=== PATIENT | female | born 1990 | race Caucasian/White ===

== ENCOUNTER 2016-09-20 08:36 | Inpatient (IN) | payer OTHER ==
[~2016-09-20] VITALS: Ht 174 cm; Wt 83.5 kg
[~2016-09-20 08:36] MED LIST: AUGMENTIN 875-1 EACH PO; BACTRIM DS TAB1 EACH PO; FERRALET 90 TA1 EACH PO; FERRALET 901 TAB PO; MOTRIN 800MG T800 MG PO; NEXIUM40 M1 PO; NORCO 325 MG-51 TAB PO; PERCOCET 5-3251 EACH PO; PROAIR HFA8.5 GM INH; SUBOXONE 8 MG-1 EACH SL; SULFAMETHOXAZO1 EAC1 PO; TRAMADOL HCL50 M1 PO; XANAX0.5 M1 PO
[2016-09-20 08:53] VITALS: BP 114/76
[2016-09-20] MEDS ORDERED: PRENATAL ONE D1 EACH PO (09:22)
[2016-09-20 10:48] LABS: ABSOLUTE BASOPHIL COUNT 0 /CUMM (0.0-0.2); ABSOLUTE EOSINOPHIL COUNT 0.3 /CUMM (0.0-0.7); ABSOLUTE GRANULOCYTE CT 8.2 /CUMM (1.4-6.5); ABSOLUTE LYMPH COUNT 3.7 /CUMM (1.2-3.4); ABSOLUTE MONOCYTE COUNT 0.7 /CUMM (0.10-0.60); BASOPHIL % 0.3 % (0.0-2.0); EOSINOPHIL % 2.5 % (0-5); GRANULOCYTE % 63.5 % (42.2-75.2); HEMATOCRIT 29.5 % (37-47); MEAN CORPUSCULAR HGB CONC 33.8 G/DL (33.0-37.0); MEAN CORPUSCULAR VOLUME 91.6 FL (81.0-99.0); MEAN PLATELET VOLUME 8.1 FL (7.4-10.4); PLATELET COUNT 317 /CUMM (130-400); RED BLOOD CELL CT 3.22 /CUMM (4.20-5.40)
--- NOTE | 2016-09-20 12:35 | History & Physical ---
General Information and HPI MD Statement: I have seen and personally examined CHRISSY MENDES and documented this H&P. The patient is a 26 year old female at39 [] weeks and [] days gestation who presented with a chief complaint of []. Wants to have her baby. Patient has a history of positive urine tox with cocaine and cannabis. Patient previously used Suboxone but not during this she did not follow-up with the treatment for her substance abuse she is a half-pack per day smoker History of Present Illness: 26-year-old 5 para 22 previous vaginal deliveries 1 that was quick on had care that started a Dr. Iban Garibay's office on my office patient has had 4 urine tox was positive on she is now admitted for induction of labor with Pitocin Allergies/Medications Allergies: Coded Allergies: pomegranate (Intermediate, HIVES 12/18/15) ibuprofen (ULCER 01/06/16) Home Med list Albuterol Sulfate (Proair Hfa) 8.5 GM HFA.AER.AD 2 PUF INH Q4-6 PRN PRN ASTHMA (Reported) Alprazolam (Xanax) 0.5 MG TABLET 1 TAB PO BIDP PRN ANXIETY (Reported) Esomeprazole (Nexium) 40 MG CAPSULE.DR 1 CAP PO DAILY PRN GERD (Reported) Iron Carb,Gl/FA/B12/C/Docusate (Ferralet 90 Tablet) 1 EACH TABLET 2 TAB PO DAILY ANEMIA (Reported) Oxycodone HCl/Acetaminophen (Percocet 5-325 MG Tablet) 1 EACH TABLET 2 TAB PO Q4H PRN PAIN Vit No.129/Iron/FA ( One Daily Tablet) 27 MG IRON-800 MCG TABLET 1 TAB PO DAILY (Reported) Sulfamethoxazole/Trimethoprim (Bactrim Ds Tablet) 1 EACH TABLET 1 TAB PO BID ANTIBIOTIC, INFECTION Tramadol HCl 50 MG TABLET 1 TAB PO BIDP PRN PAIN 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 Para: 1 Last Menstrual Period: April 2014 Estimated Delivery Date: 02/18/2015 Past systems test analyst History: 1 normal delivery Past Pregnancies Past Pregnancies: Type of Delivery: vaginal Medical History EENT: allergies Cardiovascular: NONE Respiratory: asthma, bronchitis, pneumonia Gastrointestinal: GERD Hepatic: INCREASED LFT'S Renal: NONE Musculoskeletal: chronic back pain Psychiatric: anxiety, opioid dependence (on suboxone), PTSD Endocrine: NONE Blood Disorders: anemia Cancer(s): NONE 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 parent Primary Language: Citizen Of The [place] Smoking Status: Current Everyday Smoker Review of Systems Review of Systems: -13 point review of systems as stated in the HPI Exam & Diagnostic Data Last 24 Hrs of Vital Signs/I&O Vital Signs Date Time Temp Pulse Resp B/P B/P Pulse O2 O2 Flow FiO2 Mean Ox Delivery Rate 09/20 0853 114/76 Intake & Output 09/20 1600 09/20 0800 09/20 0000 Intake Total Output Total Balance Patient 184 lb Weight Obstetric Exam Wgt Gained During : 17 Pelvimetry: Tested to 6 lbs. 7 oz. Dilation (cm): 3 Effacement (%): 80 Station: 1 Membranes: AROM Fluid: clear Fundal Height (cm): 39 Multiple Gestation? No Contractions: Every 3 minutes Patient for Induction? Yes Andrews Score Andrews Score Response Value Cervix Position: anterior 2 Cervix Consistency: soft 2 Cervix Effacement: >80% 3 Cervix Dilation: 3-4 cm 2 Total 9 Physical Exam: Pill white female just awakening from slump HEENT anicteric lungs clear Heart S1 and S2 Abdomen soft estimated weight 3700 g Extremities negative edema negative Homans Labs Blood Type & Rh: Negativeo Antibody Screen: Negative Hct/Hgb & Platelets #1: 0 Hct/Hgb & Platelets #2: 04/28 6330 Rubella: i VDRL #1: nr . VDRL #2: nr HbsAg: neg HIV #1: neg HIV #2 neg 1 Hr P Group B Strep: neg Initial Ultrasound: nl Anatomy Ultrasound: Normal Genetic Testing: nl Assessment/Plan As Ranked By This Provider Problem List: 1. Core Measures/Miscellaneous Venous Thromboembolism VTE Risk Factors: / VTE Contraindications: No Contraindications VTE Diagnosis: No Beta Annette Is Beta Annette a Home Med? No Antibiotics Is Patient on Antibiotics? No
--- NOTE | 2016-09-20 14:22 | PN- Obstetrical ---
Subjective Subjective: NO COMPLAINTS Objective Last 24 Hrs of Vital Signs/I&O Vital Signs Date Time Temp Pulse Resp B/P B/P Pulse O2 O2 Flow FiO2 Mean Ox Delivery Rate 09/20 0853 114/76 Intake & Output 09/20 1600 09/20 0800 09/20 0000 Intake Total Output Total Balance Patient 184 lb Weight Physical Exam: PE THIN WF ABD SOFT EFW FUNDUS [id number] Obstetric Exam Dilation (cm): 4 Effacement (%): 80 Station: 0 Membranes: AROM Fluid: clear Multiple Gestation? No Contractions: Q 3 MINUTES Assessment/Plan Assessment/Plan ASSESS TERM INDUCTION PITOCIN PLAN OBSERVE
--- NOTE | 2016-09-20 17:30 | Labor & Delivery Summary ---
Delivery Summary Vaginal Delivery: Vaginal: vertex Placenta: Placenta: spontanteous, normal, 3 vessel, CALCIFIED Anesthesia: block
[2016-09-21 09:43] LABS: ABSOLUTE BASOPHIL COUNT 0.1 /CUMM (0.0-0.2); ABSOLUTE EOSINOPHIL COUNT 0.3 /CUMM (0.0-0.7); ABSOLUTE GRANULOCYTE CT 7.9 /CUMM (1.4-6.5); ABSOLUTE LYMPH COUNT 3.8 /CUMM (1.2-3.4); ABSOLUTE MONOCYTE COUNT 0.6 /CUMM (0.10-0.60); BASOPHIL % 0.7 % (0.0-2.0); EOSINOPHIL % 2.3 % (0-5); GRANULOCYTE % 62.2 % (42.2-75.2); HEMATOCRIT 31.2 % (37-47); MEAN CORPUSCULAR HGB 30.8 PG (27.0-31.0); MEAN CORPUSCULAR HGB CONC 33.7 G/DL (33.0-37.0); MEAN CORPUSCULAR VOLUME 91.5 FL (81.0-99.0); PLATELET COUNT 292 /CUMM (130-400); RBC DISTRIBUTION WIDTH 16.8 % (11.5-14.5); RED BLOOD CELL CT 3.41 /CUMM (4.20-5.40); WHITE BLOOD CELL COUNT 12.7 /CUMM (4.8-10.8)
--- NOTE | 2016-09-21 13:58 | PN- Post Delivery/GYN ---
Subjective Subjective: C/O PAIN OVER EPIDURAL Objective Last 24 Hrs of Vital Signs/I&O PER PAPER CHART Physical Exam: PE WFIN NAD ABD SOFT NT FUNDUS FIRM NT LOCHIA MINIMAL EXT -EDEMA -HOMANS Assessment/Plan Assessment/Plan ASSESS S/P PLAN D/C IN AM
== END 2016-09-22 11:30 | DRG 560 ==
LOC: GNO 08:36
PROVIDERS: ADMIT Specialist
PROC: 10E0XZZ Delivery of Products of Conception, External Approach (ICD-10-PCS; principal; 2016-09-20)
PROC: 3E033VJ Introduction of Other Hormone into Peripheral Vein, Percutaneous Approach (ICD-10-PCS; 2016-09-20)
DX: O99.324 Drug use complicating childbirth (principal); F19.90 Other psychoactive substance use, unspecified, uncomplicated; O99.334 Smoking (tobacco) complicating childbirth; Z3A.39 39 weeks gestation of pregnancy; Z37.0 Single live birth
CPT/HCPCS: GNOS; 36415; 80307; 81003; 87086; 88307; G0463; J7120

== ENCOUNTER 2017-11-25 20:13 | Inpatient (IN) | payer OTHER ==
[~2017-11-25] VITALS: Ht 172.7 cm; Wt 85.3 kg
[~2017-11-25 20:13] MED LIST changes: +ALBUTEROL2.5 MG/0.5 INH/SOL; +AMOXICILLIN875 M1 PO; +BUPRENORPHINE HC2 MG SL; +DULOXETINE HCL30 MG PO; +HYDROXYZINE HCL50 M1 PO; +MARINOL10 MG PO; +PREDNISONE10 M2 PO; +PRENATAL ONE D1 EACH PO; +TAYTULLA 1 MG-1 EACH PO; +TRIAMCINOLONE A15 G1 TOP; +VYVANSE70 M1 PO; +ZITHROMAX250 M2 PO
[2017-11-25 22:41] LABS: ABSOLUTE BASOPHIL COUNT 0.1 /CUMM (0.0-0.2); ABSOLUTE EOSINOPHIL COUNT 0.4 /CUMM (0.0-0.7); ABSOLUTE GRANULOCYTE CT 8.7 /CUMM (1.4-6.5); ABSOLUTE LYMPH COUNT 4.5 /CUMM (1.2-3.4); ABSOLUTE MONOCYTE COUNT 0.9 /CUMM (0.10-0.60); BASOPHIL % 0.5 % (0.0-2.0); EOSINOPHIL % 2.5 % (0-5); GRANULOCYTE % 59.9 % (42.2-75.2); HEMATOCRIT 29.6 % (37-47); MEAN CORPUSCULAR HGB 29.3 PG (27.0-31.0); MEAN CORPUSCULAR HGB CONC 33.2 G/DL (33.0-37.0); MEAN CORPUSCULAR VOLUME 88.4 FL (81.0-99.0); MEAN PLATELET VOLUME 7.5 FL (7.4-10.4); PLATELET COUNT 328 /CUMM (130-400); RBC DISTRIBUTION WIDTH 17.4 % (11.5-14.5); RED BLOOD CELL CT 3.35 /CUMM (4.20-5.40); WHITE BLOOD CELL COUNT 14.5 /CUMM (4.8-10.8)
--- NOTE | 2017-11-25 22:51 | History & Physical ---
General Information and HPI MD Statement: I have seen and personally examined VAUGHNCHRISSY and documented this H&P. The patient is a 27 year old female at [40] weeks and [0] days gestation who presented with a chief complaint of [LABOR]. History of Present Illness: 27YO UNKNOWN LMP EDC 11/25/17 AT 40 WEEKS IN LABOR. LATE TRANSFER FROM [facility] SHORT [facility]ACE. PT HAS HISTORY OF ANAL FISSURE REPAIR. 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 History: 1 normal delivery Past Pregnancies Past Pregnancies: Type of Delivery: vaginal Medical History Neurological: NONE EENT: allergies Cardiovascular: NONE Respiratory: asthma, bronchitis, pneumonia Gastrointestinal: GERD Hepatic: INCREASED LFT'S Renal: NONE Musculoskeletal: chronic back pain Psychiatric: anxiety, opioid dependence (on suboxone), PTSD Endocrine: NONE Blood Disorders: anemia Cancer(s): NONE 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 parent Primary Language: Czech Review of Systems Review of Systems Constitutional: Reports: no symptoms. EENTM: Reports: no symptoms. Cardiovascular: Reports: no symptoms. Respiratory: Reports: no symptoms. GI: Reports: no symptoms. Genitourinary: Reports: no symptoms. Musculoskeletal: Reports: no symptoms. Skin: Reports: no symptoms. Neurological/Psychological: Reports: no symptoms. Hematologic/Endocrine: Reports: no symptoms. Immunologic/Allergic: Reports: no symptoms. All Other Systems: Reviewed and Negative Exam & Diagnostic Data Last 24 Hrs of Vital Signs/I&O VSS Obstetric Exam Wgt Gained During : 40 Pelvimetry: GYNECOID Dilation (cm): 4 Effacement (%): 100 Station: 0 Membranes: intact Fluid: unknown Fundal Height (cm): 41 Multiple Gestation? No Contractions: Q2-5 #1 - FHR Baseline: 140 Category: 1 Estimated Weight: 7.5 Presentation: CEPHALIC Patient for Induction? No Labs Blood Type & Rh: O POS Antibody Screen: NEG Hct/Hgb & Platelets #1: Hct/Hgb & Platelets #2: Rubella: IMM VDRL #1: NR VDRL #2: NR HbsAg: NWEG HIV #1: NEG HIV #2 NEG 1 Hr P Group B Strep: NEG Initial Ultrasound: WNL Anatomy Ultrasound: WNL Ultrasound for EFW: NA Genetic Testing: NEG Last 24 Hrs of Labs/[place]: Laboratory Tests 11/25/172228: CBC w Diff MAN DIFF ORDERED, RBC 3.35 L, MCV 88.4, MCH 29.3, MCHC 33.2, RDW 17.4 H, MPV 7.5, Gran % 59.9, Lymphocytes % 31.0, Monocytes % 6.1, Eosinophils % 2.5, Basophils % 0.5, Absolute Granulocytes 8.7 H, Segmented Neutrophils Pending, Absolute Lymphocytes 4.5 H, Absolute Monocytes 0.9 H, Absolute Eosinophils 0.4, Absolute Basophils 0.1 11/25/17 2200: Methadone Screen Pending, Barbiturate Screen Pending, Ur Phencyclidine Scrn Pending, Amphetamines Screen Pending, U Benzodiazepines Scrn Pending, Urine Cocaine Screen Pending, Urine Cannabis Screen Pending, Urinalysis LIGHT H, Urine Color YEL, Urine Clarity CLEAR, Urine pH 7.0, Ur Specific [place] 1.015, Urine Protein NEG, Urine Ketones NEG, Urine Nitrite NEG, Urine Bilirubin NEG, Urine Urobilinogen 1.0, Ur Leukocyte Esterase TRACE H, Ur Microscopic SEDIMENT EXAMINED, Urine RBC RARE, Urine WBC 1-3 H, Ur Epithelial Cells MOD H, Urine Hemoglobin NEG, Urine Glucose NEG 11/25/17 2150: CBC w Diff Cancelled, WBC Cancelled, RBC Cancelled, Hgb Cancelled, Hct Cancelled , MCV Cancelled, MCH Cancelled, MCHC Cancelled, RDW Cancelled, Plt Count Cancelled, MPV Cancelled, Methadone Screen Cancelled, Barbiturate Screen Cancelled, Ur Phencyclidine Scrn Cancelled, Amphetamines Screen Cancelled, U Benzodiazepines Scrn Cancelled, Urine Cocaine Screen Cancelled, Urine Cannabis Screen Cancelled, Urine Color Cancelled, Urine Clarity Cancelled, Urine pH Cancelled, Ur Specific [place] Cancelled, Urine Protein Cancelled, Urine Ketones Cancelled, Urine Nitrite Cancelled, Urine Bilirubin Cancelled, Urine Urobilinogen Cancelled, Ur Leukocyte Esterase Cancelled, Ur Microscopic Cancelled, Urine Hemoglobin Cancelled, Urine Glucose Cancelled Assessment/Plan Assessment/Plan: TERM EXPECTANT MGMT As Ranked By This Provider Problem List: 1. Core Measures Venous Thromboembolism VTE Risk Factors / No Mechanical VTE Prophylaxis d/t Early Ambulation No VTE Pharm Prophylaxis d/t Bleeding (Active)
--- NOTE | 2017-11-26 00:58 | Labor & Delivery Summary ---
Delivery Summary Vaginal Delivery: Vaginal: vertex Episiotomy/Lacerations: Episiotomy/Lacerations: none Placenta: Placenta: spontanteous, normal, 3 vessel Baby's Weight: P STS Apgars - 1 Min: 9 Apgars - 5 Min: 9 Additional Comments: PRECIPITOUS YOLY; ANESTHESIA PRESENT
[2017-11-26 03:23] VITALS: BP 102/53
--- NOTE | 2017-11-26 09:30 | PN- Post Delivery/GYN ---
Subjective Subjective: NO COMPLAINTS Objective Last 24 Hrs of Vital Signs/I&O Vital Signs Date Time Temp Pulse Resp B/P B/P Pulse O2 O2 Flow FiO2 Mean Ox Delivery Rate 11/26 0323 102/53 Intake & Output 11/26 1600 11/26 0800 11/26 0000 Intake Total Output Total Balance Patient 188 lb Weight Physical Exam: PE THIN PALE WF INNAD ABD SOFT NT FUNDUS FIRM NT LOCHIA SCANT EXT -EDEMA Assessment/Plan Assessment/Plan ASSESS S/PNSVD PLAN CHECK CBC
[2017-11-26 11:08] LABS: ABSOLUTE BASOPHIL COUNT 0.1 /CUMM (0.0-0.2); ABSOLUTE EOSINOPHIL COUNT 0.2 /CUMM (0.0-0.7); ABSOLUTE GRANULOCYTE CT 10.7 /CUMM (1.4-6.5); ABSOLUTE LYMPH COUNT 3.8 /CUMM (1.2-3.4); ABSOLUTE MONOCYTE COUNT 0.9 /CUMM (0.10-0.60); BASOPHIL % 0.4 % (0.0-2.0); EOSINOPHIL % 1.2 % (0-5); HEMATOCRIT 29.1 % (37-47); MEAN CORPUSCULAR HGB 29.8 PG (27.0-31.0); MEAN CORPUSCULAR HGB CONC 33.5 G/DL (33.0-37.0); MEAN PLATELET VOLUME 8.3 FL (7.4-10.4); PLATELET COUNT 279 /CUMM (130-400); RBC DISTRIBUTION WIDTH 17.4 % (11.5-14.5); RED BLOOD CELL CT 3.27 /CUMM (4.20-5.40); WHITE BLOOD CELL COUNT 15.6 /CUMM (4.8-10.8)
[2017-11-26 11:51] LABS: GRANULOCYTE % 68.6 % (42.2-75.2)
[2017-11-27 08:45] LABS: ABSOLUTE BASOPHIL COUNT 0.1 /CUMM (0.0-0.2); ABSOLUTE EOSINOPHIL COUNT 0.5 /CUMM (0.0-0.7); ABSOLUTE GRANULOCYTE CT 6.4 /CUMM (1.4-6.5); ABSOLUTE LYMPH COUNT 4.2 /CUMM (1.2-3.4); ABSOLUTE MONOCYTE COUNT 0.7 /CUMM (0.10-0.60); BASOPHIL % 0.5 % (0.0-2.0); EOSINOPHIL % 3.9 % (0-5); HEMATOCRIT 28.8 % (37-47); MEAN CORPUSCULAR HGB 29.1 PG (27.0-31.0); MEAN CORPUSCULAR HGB CONC 32.4 G/DL (33.0-37.0); MEAN CORPUSCULAR VOLUME 89.8 FL (81.0-99.0); MEAN PLATELET VOLUME 8.2 FL (7.4-10.4); PLATELET COUNT 314 /CUMM (130-400); RBC DISTRIBUTION WIDTH 17.3 % (11.5-14.5); RED BLOOD CELL CT 3.21 /CUMM (4.20-5.40); WHITE BLOOD CELL COUNT 11.9 /CUMM (4.8-10.8)
[2017-11-27] MEDS ORDERED: TYLENOL325 M1 PO (10:46)
== END 2017-11-27 11:00 | DRG 560 ==
LOC: CBCO 20:13 → GNO 22:12
PROVIDERS: Obstetrics & Gynecology
PROC: 10E0XZZ Delivery of Products of Conception, External Approach (ICD-10-PCS; principal; 2017-11-26)
DX: O62.3 Precipitate labor (principal); Z3A.40 40 weeks gestation of pregnancy; Z37.0 Single live birth; Z88.6 Allergy status to analgesic agent; Z91.040 Latex allergy status; O99.52 Diseases of the respiratory system complicating childbirth
CPT/HCPCS: GNOP; GNOS; 36415; 80307; 81001; J2210; J2405; J7120